=== PATIENT | male | born 1975 | race African-American/Black ===

== ENCOUNTER → 2020-10-16 | Outpatient (CLI) | payer OTHER ==
--- NOTE | 2020-10-17 07:54 | XR ---
EXAMINATION TYPE: XR chest 2V DATE OF EXAM: 10/16/2020 COMPARISON: NONE HISTORY: Chest pain TECHNIQUE: Frontal and lateral views of the chest are obtained. FINDINGS: There is no focal air space opacity. No evidence for pneumothorax. No pleural effusion. The cardiac silhouette size is within normal limits. The osseous structures are grossly intact. IMPRESSION: 1. No acute cardiopulmonary process.
== END | disposition home or self-care (01) ==
LOC: RADXRMAIN 13:29
PROVIDERS: ATTEND Nurse Practitioner Family
DX: R07.9 Chest pain, unspecified (principal)
CPT/HCPCS: 71046